=== PATIENT | female | born 1955 ===

== ENCOUNTER 2024-08-07 06:45 | Day surgery (SDC) | payer OTHER, MEDICARE ==
[2024-08-04 10:30] LABS: Absolute Eosinophils 0.1 K/uL (0-0.5); Absolute Lymphocytes (CBC) 1.7 K/uL (0.7-4.9); Absolute Monocytes 0.4 K/uL (0.1-1.3); Absolute Neutrophil 3.8 K/uL (1.8-8.0); Basophils % 0.5 % (0-1.3); Eosinophils % 1.5 % (0-4.4); Hematocrit 42.4 % (36.0-45.0); Hemoglobin 13.6 g/dL (12.0-15.0); Lymphocytes % 27.3 % (15.3-44.8); MCH 29.1 pg (27.0-35.0); MCHC 32.2 g/dL (32.0-36.0); MCV 90.4 fL (80-100); MPV 9.1 fL (7.6-11.3); Monocytes % 7.4 % (3.3-12.3); Neutrophils % 63.3 % (41.7-73.7); Platelets 172 thou/uL (152-406); RBC Red Blood Cell Count 4.69 M/uL (3.86-4.86); Red Cell Distribution Width 13.2 % (12.1-15.2)
[2024-08-04 10:43] LABS: Anion Gap 7.5 mEq/L (5.0-15.0); Potassium 4.5 mEq/L (3.5-5.1)
--- NOTE | 2024-08-06 12:10 | EKG ---
Test Date: 2024-08-04 Test Time: 11:06:49 [employer] Salvager: CHINO MEASUREMENT RESULTS: Intervals: Rate: 52 WV: 180 QRSD: 84 QT: 460 QTc: 427 [place]: P: 68 WV: 180 QRS: 49 T: 84 INTERPRETIVE STATEMENTS: Sinus bradycardia Otherwise normal ECG No previous ECG available for comparison Electronically Signed On 08-06-24 12:09:41 EKG TECHNICIAN by Waldo Hendrix
[2024-08-07] MEDS ORDERED: LIDOCAINE 2% MPF 5 ML VIAL ONE (06:56)
[2024-08-07] MEDS ORDERED: dexAMETHasone 10 MG/ML VIAL ONE (06:56)
[2024-08-07] MEDS ORDERED: ONDANSETRON 4 MG/2 ML VIAL ONE (06:56)
[2024-08-07] MEDS ORDERED: ROCURONIUM 50 MG/5 ML VIAL IV ONE ×2 (06:56→09:21)
[2024-08-07] MEDS ORDERED: propofoL 200 MG/20 ML VIAL IV ONE (06:57)
[2024-08-07] MEDS ORDERED: FENTANYL CITR 250 MCG/5 ML ONE (06:58)
[2024-08-07] MEDS ORDERED: MIDAZOLAM HCL 2 MG/2 ML INJ ONE (06:58)
[2024-08-07] MEDS ORDERED: NS 0.9% VIAL 20 ML ONE (07:07)
[2024-08-07] MEDS ORDERED: Phenylephrine HCl 10 MG/ML 1 ML VIAL ONE (07:07)
[2024-08-07] MEDS: Ringers Lactate 1,000 ML IV ONE (07:10)
[2024-08-07] MEDS ORDERED: BACITRACIN OINTMENT 14 GM TUBE TOP ONE (07:15)
[2024-08-07] MEDS: OXYMETAZOLINE HCL 0.05% 15ML NAS ONE ×2 (07:43→08:05)
[2024-08-07] MEDS: LIDOCAINE HCL/EPINEPHRINE 20 ML MDV ONE (08:25)
[2024-08-07] MEDS ORDERED: SUGAMMADEX SODIUM 200 MG/2 ML VIAL IV ONE (09:44)
[2024-08-07] MEDS ORDERED: BSS OPTHALMIC SOL 15 ML OPTH ONE (09:56)
--- NOTE | 2024-08-07 10:21 | P.OP ---
Nurse Chemical Dependency: NONE,NONE Preoperative diagnosis: Left epiphora due to nasolacrimal obstruction Postoperative diagnosis: Same Primary procedure: Endoscopic dacrocytorhinostomy Anesthesia: General Estimated blood loss: 5 mL Specimen: None Operative Technique: The patient was brought to the operating room placed under general anesthesia via oral endotracheal tube. The head of bed was turned 90 degrees and the nasal hairs were trimmed. Anterior rhinoscopy was performed with a headlight revealing left septal deviation and septal spur with a widened right middle turbinate. With anterior rhinoscopy, the lacrimal crest was visible and decision was made to attempt procedure without septoplasty. A 0 degree endoscope was used to perform a nasal endoscopy. Photodocumentation was obtaine d of the lacrimal crest. A small amount of 1% lidocaine with epinephrine was injected along the left lacrimal crest. After time for effect a sickle knife was used to make a incision through the mucosa and the lacrimal bone was identified. A Sandeep elevator was use to elevate the mucosa from the bone. The lacrimal bone was carefully partially removed using 90 degree [place]akes[place] and endoscopic rongeurs. Once the bony fragments were removed, the lacrimal sac was visualized and gentle palpation of the globe confirmed movement of the lacrimal sac. Gentle pressure was applied with an Afrin-soaked pledget intermittently to aid in hemostasis. The Toro tube was carefully inserted into the inferior left punctum and carefully threaded through the canaliculi. Mild resistance was met with advan cement. The probe was judiciously and carefully advanced. Using the endoscope for nasal visualization, it was difficult to visualize the tip of the Toro tube probe. While attempting to retract the probe to improve visualization the tube was noted to become disconnected from the probe the the probe completed inserted. Additional judicious dissection was performed in order to more thoroughly open the lacrimal sac and small amounts of soft tissue, granulation and thick debris was removed using a small up-biting cup forceps. However, the Toro tube probe was not visualized. The 0 degree endoscope was then passed through the inferior meatus and under the septal spur and the Toro tube probe was visualized extending into the nasopharynx from the middle meatus. Attempt at removal was unsuccessful due to the positioning of the probe. The 0 degree endoscope was passed through the right nasal cavity but the probe was not well-visualized from that side. Due to the location, a tonsillectomy set was brought to the field. The McIvor mouthgag was placed within the oral cavity and used for exposure of the oral pharynx. The tip of the probe was noted to be extending into the orop harynx from the nasopharynx and was easily grasped and removed without complication. A new Toro tube was then carefully inserted into the left inferior punctum and threaded through the cannula collide. With endoscopic visualization in the nose, the tip of the probe was noted slightly more superior and slightly posterior to the initial area of investigation. The hook was used to grasp the probe and it was pulled through the nasal cavity and out through the nare. The Toro tube was then attempted to be placed in the left superior punctum but the opening of the punctum was narrowed. A 000 lacrimal probe was used to cannulate the superior punctum. The punctum was then serially dilated with a size 00, 0, and 1 lacrimal probe. Following dilation, the Toro tube probe was then passed successfully through the superior punctum and into the canaliculi and angled into the lacrimal sac. The probe was visualized within the nasal cavity using a 0 degree endoscope and was grasped with a hook and carefully withdrawn. The Toro tube was then released from the probe and tied within the nasal cavity. The nasal cavity was then suctioned and no additional pledgets or other foreign body were noted. Photodocumentation of the Toro tubes in situ were obtained and the patient was returned to care of anesthesia for awakening extubation in the operating room which proceeded with out difficulty. There was mild swelling along the medial canthus and the patient was instructed to apply cold compresses for 10 minutes every 2 hours while awake for the next 48 hours in order to reduce swelling. The patient will follow-up with Dr. Watson's office for evaluation of healing and removal of the Toro tube once the nasal mucosa is adequately healed. Complications: None Implants: Toro tube, left Fluids & blood products: See anesthesia record Transferred to: Recovery Room Condition: Good
[2024-08-07] MEDS: HYDROMORPHONE HCL 1 MG/ML INJ ONE (10:29)
[2024-08-07] MEDS ORDERED: HYDROMORPHONE HCL 1 MG/ML INJ ONE (11:19)
[2024-08-07] MEDS: HYDROCODONE/APAP 7.5/325 MG TAB ONE (11:51)
[2024-08-07 13:19] VITALS: TEMP 98.4
[2024-08-07 14:32] VITALS: BP 147/67; O2SAT 100
== END 2024-08-07 14:22 | disposition home or self-care (01) ==
LOC: OR 06:45
PROVIDERS: ATTEND Otolaryngology
PROC: 081Y0Z3 Bypass Left Lacrimal Duct to Nasal Cavity, Open Approach (ICD-10-PCS; principal; 2024-08-07 07:30)
DX: H04.222 Epiphora due to insufficient drainage, left side (principal); J34.2 Deviated nasal septum; J32.0 Chronic maxillary sinusitis; I10 Essential (primary) hypertension; Z88.0 Allergy status to penicillin; Z88.2 Allergy status to sulfonamides
CPT/HCPCS: 31239; 93005; 85025; 80048; 36415; A4216; J2704; J2371; J2003; J2250; J3010; J1100; J1171; J2405; J7120